=== PATIENT | female | born 1960 | race Caucasian/White ===

== ENCOUNTER 2025-02-27 18:23 | Emergency (ER) | payer BC ==
[2025-02-27 19:16] VITALS: BP 102/61; PULSE 104
== END 2025-02-27 19:09 | disposition home or self-care (01) ==
LOC: LB.ED 18:23
DX: B34.9 Viral infection, unspecified (principal); E11.9 Type 2 diabetes mellitus without complications; F17.210 Nicotine dependence, cigarettes, uncomplicated; Z79.82 Long term (current) use of aspirin; Z79.899 Other long term (current) drug therapy
CPT/HCPCS: 99283